=== PATIENT | female | born 1975 | race Asian ===

== ENCOUNTER 2018-09-25 07:52 | Outpatient (CLI) | payer OTHER ==
--- NOTE | 2018-09-25 13:51 | MRI Report ---
Reason: PAIN IN LEFT KNEE Procedure Date: 09/25/2018 Accession Number: [id number] / [id number] Procedure: MRI - Knee LT W/O CPT Code: FULL RESULT: EXAM: LEFT KNEE MRI WITHOUT CONTRAST EXAM DATE: 09/25/2018 09:09 AM. CLINICAL HISTORY: Left knee pain, arthritis. COMPARISON: None. TECHNIQUE: Multiplanar, multisequence T1-weighted and fluid-sensitive sequences of the knee without contrast. Other: None. FINDINGS: Cruciate ligaments: The anterior and posterior cruciate ligaments appear intact. Medial meniscus: Intact. No tear is identified. Lateral meniscus: Intact. No tear is identified. Collateral ligaments: The medial and fibular collateral ligaments appear intact. Bones and articular surfaces: Mild cartilage thinning, fissuring and irregularity in the weightbearing medial compartment most pronounced at the posterior weightbearing aspect of the medial femoral condyle. Lateral and patellofemoral compartments demonstrate no significant articular cartilage defects. Extensor mechanism: The patellar tendon and quadriceps insertion appear intact. IMPRESSION: 1. Mild degenerative cartilage changes in the medial compartment. [facility] MUSCULOSKELETAL RADIOLOGY SECTION
== END 2018-09-25 07:53 | disposition home or self-care (01) ==
LOC: DI 07:52
PROVIDERS: ATTEND Orthopaedic Surgery
DX: M17.11 Unilateral primary osteoarthritis, right knee (principal)

== ENCOUNTER 2021-09-18 08:00 | Outpatient (CLI) | payer OTHER | END 2021-09-18 23:59 | LOC: LAB.R 08:00 | PROVIDERS: ATTEND Internal Medicine | DX: Z02.1 Encounter for pre-employment examination (principal) | CPT/HCPCS: 86317 ==

== ENCOUNTER 2023-02-14 17:11 | Emergency (ER) | payer OTHER ==
--- OUTSIDE RECORDS SUMMARY | 2023-02-14 18:19 | EXTERNAL MEDICAL SUMMARY RPT | Continuity of Care Document ---
Author Name Unknown Address [address] [place] [address] Phone Organization [facility] Address [address] [place] [address] Phone Care Team Providers Care Supervisor Steffen House Name Role Phone Unavailable Unavailable Unavailable Matthew Hughes Unavailable Unavailable Allergies and Intolerances date description facility type (no date) No Known Drug Allergies [facility] ( unknown) Problems date description facility 2022-12-17 08:44 Unilateral primary osteoarthrit is, [facility] 2022-12-17 13:20 Unilateral primary osteoarthrit is, [facility] 2022-12-17 16:13 Unilateral primary osteoarthrit is, [facility] 2022-12-17 16:46 Unilateral primary osteoarthrit is, [facility] Procedures date description facility 2022-12-17 00:00 Unicompartment Knee Arthroplast y (Left) [facility] Results/Labs test date author facility value unit interpretation Result panel 1 (unknown) (no date) (unknown) (unknown) (no value) (units unknown) (unknown) (unknown) (no date) (unknown) (unknown) 12/17/22 (units unknown) (unknown) (unknown) (no date) (unknown) (unknown) [address] [place] [address] (un its unknown) (unknown) (unknown) (no date) (unknown) (unknown) Accession Numb er: [id number] (units unknown) (unknown) (unknown) (no date) (unknown) (unknown) Age/Sex: 47 / F Date of Service: (units unknown) (unknown) (unknown) (no date) (unknown) (unknown) [place] [id number] (units unknown) (unknown) (unknown) (no date) (unknown) (unknown) Approved by: Harrison Galeano M.D. on 12/17/2022 at 17:44 (units unknown) (unknown) (unknown) (no date) (unknown) (unknown) Bones: Patient is status post medial left knee hemiarthroplasty. Hardware (units unknown) (unknown) (unknown) (no date) (unknown) (unknown) COMPARISON: Is [facility], , XR KNEE LT 3V, 03/14/2022, 13:26. (units unknown) (unknown) (unknown) (no date) (unknown) (unknown) : 6 Acct:[id number] (units unknown) (unknown) (unknown) (no date) (unknown) (unknown) Dictated by: Harrison Galeano M.D. on 12/17/2022 at 17:44 (units unknown) (unknown) (unknown) (no date) (unknown) (unknown) FINDINGS: (units unknown) (unknown) (unknown) (no date) (unknown) (unknown) IMPRESSION: Expected immediate postoperative appearance, status post medial (units unknown) (unknown) (unknown) (no date) (unknown) (unknown) INDICATIONS: Postop (units unknown) (unknown) (unknown) (no date) (unknown) (unknown) [facility] (uni ts unknown) (unknown) (unknown) (no date) (unknown) (unknown) Loc: OR (units unknown) (unknown) (unknown) (no date) (unknown) (unknown) [id number] (units unknown) (unknown) (unknown) (no date) (unknown) (unknown) Ordering Provi angelina: Marlyn Bermudez P.A-C (units unknown) (unknown) (unknown) (no date) (unknown) (unknown) PROCEDURE: XR KNEE LT 1TO2V (units unknown) (unknown) (unknown) (no date) (unknown) (unknown) Patient: Chetna Howell MR#: (units unknown) (unknown) (unknown) (no date) (unknown) (unknown) Procedure: XR knee LT 1to2V (units unknown) (unknown) (unknown) (no date) (unknown) (unknown) Signed (units unknown) (unknown) (unknown) (no date) (unknown) (unknown) Soft tissues: Overlying postoperative changes are noted. (units unknown) (unknown) (unknown) (no date) (unknown) (unknown) TECHNIQUE: 2 view(s) of the knee acquired. (units unknown) (unknown) (unknown) (no date) (unknown) (unknown) XRay Report (units unknown) (unknown) (unknown) (no date) (unknown) (unknown) are in expecte d positions. Visualized bony structures are intact. (units unknown) (unknown) (unknown) (no date) (unknown) (unknown) components (units unknown) (unknown) (unknown) (no date) (unknown) (unknown) hemiarthroplasty. (u nits unknown) (unknown) (unknown) (no date) (unknown) (unknown) left knee (units unknown) (unknown) Result panel 2 (unknown) (no date) (unknown) (unknown) (no value) (units unknown) (unknown) (unknown) (no date) (unknown) (unknown) 12/17/22 1034 (units unknown) (unknown) (unknown) (no date) (unknown) (unknown) Age/Sex: 47 / F (uni ts unknown) (unknown) (unknown) (no date) (unknown) (unknown) Changes to H+P: No ( units unknown) (unknown) (unknown) (no date) (unknown) (unknown) : 6 Acct:[id number] (units unknown) (unknown) (unknown) (no date) (unknown) (unknown) Date of Servic e: 12/17/22 (units unknown) (unknown) (unknown) (no date) (unknown) (unknown) History + Phys ical reviewed/Exam performed by Physician: Yes (units unknown) (unknown) (unknown) (no date) (unknown) (unknown) Interval Note (units unknown) (unknown) (unknown) (no date) (unknown) (unknown) [address] [address] (units unknown) (unknown) (unknown) (no date) (unknown) (unknown) [id number] (units unknown) (unknown) (unknown) (no date) (unknown) (unknown) Patient: Chetna Howell MR#: (units unknown) (unknown) (unknown) (no date) (unknown) (unknown) Pre-operative Note ( units unknown) (unknown) (unknown) (no date) (unknown) (unknown) Provider: Ne Rojo MD (units unknown) (unknown) (unknown) (no date) (unknown) (unknown) Signed By:<Electronically signed by Ne Rojo MD> (units unknown) (unknown) Result panel 3 (unknown) (no date) (unknown) (unknown) (no value) (units unknown) (unknown) (unknown) (no date) (unknown) (unknown) 20 ml Exparel for post-operative pain control. The remainder of this mixture (units unknown) (unknown) (unknown) (no date) (unknown) (unknown) A PA was used in this surgical case for essential surgical retraction, (units unknown) (unknown) (unknown) (no date) (unknown) (unknown) Age/Sex: 47 / F (uni ts unknown) (unknown) (unknown) (no date) (unknown) (unknown) Anesthesia Typ e: General (units unknown) (unknown) (unknown) (no date) (unknown) (unknown) Driver'S Education Instructor: Car a A Walker (units unknown) (unknown) (unknown) (no date) (unknown) (unknown) Blood products transfused: none (units unknown) (unknown) (unknown) (no date) (unknown) (unknown) Closure Type: primary (units unknown) (unknown) (unknown) (no date) (unknown) (unknown) Complications: none (units unknown) (unknown) (unknown) (no date) (unknown) (unknown) Condition: stable (u nits unknown) (unknown) (unknown) (no date) (unknown) (unknown) : 6 Acct:[id number] (units unknown) (unknown) (unknown) (no date) (unknown) (unknown) Date of Servic e: 12/17/22 (units unknown) (unknown) (unknown) (no date) (unknown) (unknown) Date of proced ure: 12/17/22 (units unknown) (unknown) (unknown) (no date) (unknown) (unknown) Disposition: s sherin day surgery (units unknown) (unknown) (unknown) (no date) (unknown) (unknown) Estimated Bloo d Loss (mL): 200 (units unknown) (unknown) (unknown) (no date) (unknown) (unknown) Findings: (units unknown) (unknown) (unknown) (no date) (unknown) (unknown) Indications: (units unknown) (unknown) (unknown) (no date) (unknown) (unknown) [address] [address] (units unknown) (unknown) (unknown) (no date) (unknown) (unknown) Left knee medi al unicompartment replacement (units unknown) (unknown) (unknown) (no date) (unknown) (unknown) [id number] (units unknown) (unknown) (unknown) (no date) (unknown) (unknown) Next, a small amount of the anterior tibial boss was carefully resected with a (units unknown) (unknown) (unknown) (no date) (unknown) (unknown) Operative Date/Time/Diagnoses (units unknown) (unknown) (unknown) (no date) (unknown) (unknown) Operative Note (unit s unknown) (unknown) (unknown) (no date) (unknown) (unknown) Operative Notes (uni ts unknown) (unknown) (unknown) (no date) (unknown) (unknown) Patient: Chetna Howell MR#: (units unknown) (unknown) (unknown) (no date) (unknown) (unknown) Plan for aftercare: (units unknown) (unknown) (unknown) (no date) (unknown) (unknown) Post-op diagno sis: same (units unknown) (unknown) (unknown) (no date) (unknown) (unknown) Post-operative (unit s unknown) (unknown) (unknown) (no date) (unknown) (unknown) Pre-op diagnos is: left knee OA (units unknown) (unknown) (unknown) (no date) (unknown) (unknown) Procedure + Clinicians (units unknown) (unknown) (unknown) (no date) (unknown) (unknown) Procedure in detail: (units unknown) (unknown) (unknown) (no date) (unknown) (unknown) Procedure: (units unknown) (unknown) (unknown) (no date) (unknown) (unknown) Prosthetic dev ices, grafts, tissues, transplants, or devices: (units unknown) (unknown) (unknown) (no date) (unknown) (unknown) Provider: Ne Rojo MD (units unknown) (unknown) (unknown) (no date) (unknown) (unknown) Range of motio n was [0-130], with good stability throughout the range. (units unknown) (unknown) (unknown) (no date) (unknown) (unknown) Same procedure as scheduled: Yes (units unknown) (unknown) (unknown) (no date) (unknown) (unknown) Severe left kn ee medial unicompartment arthritis (units unknown) (unknown) (unknown) (no date) (unknown) (unknown) Signed By: (units unknown) (unknown) (unknown) (no date) (unknown) (unknown) Edgardo Rees medial unicompartment (units unknown) (unknown) (unknown) (no date) (unknown) (unknown) Specimen(s): n one sent (units unknown) (unknown) (unknown) (no date) (unknown) (unknown) Surgeon: Gayatri Rojo (units unknown) (unknown) (unknown) (no date) (unknown) (unknown) The femur was sized and it was noted to be a [C]. The appropriate cutting guide (units unknown) (unknown) (unknown) (no date) (unknown) (unknown) The knee was approached through an approximately 10 cm incision medial (units unknown) (unknown) (unknown) (no date) (unknown) (unknown) The patient dumont s had progressively worsening left knee pain with radiographic (units unknown) (unknown) (unknown) (no date) (unknown) (unknown) The patient wa s seen in the pre-operative area, where the left knee was (units unknown) (unknown) (unknown) (no date) (unknown) (unknown) The patient wi ll be maintained on a standard unicompartment knee replacement (units unknown) (unknown) (unknown) (no date) (unknown) (unknown) The trials wer e then remove. The cement was as applied and the final (units unknown) (unknown) (unknown) (no date) (unknown) (unknown) Time of proced ure: 11:20 (units unknown) (unknown) (unknown) (no date) (unknown) (unknown) Trial reductio n with the appropriate poly showed full range of motion and good (units unknown) (unknown) (unknown) (no date) (unknown) (unknown) a size [3]. It was noted that it fit without overhang. (units unknown) (unknown) (unknown) (no date) (unknown) (unknown) adjusted to ma ke sure there was appropriate slope that it was at the joint line (units unknown) (unknown) (unknown) (no date) (unknown) (unknown) and placed on the operative table in the supine position. After satisfactory (units unknown) (unknown) (unknown) (no date) (unknown) (unknown) and then was p inned to the tibia and the femur. The medial femoral condylar cut (units unknown) (unknown) (unknown) (no date) (unknown) (unknown) anesthesia, a time analysis clerk out was performed. The left leg was encircled with a (units unknown) (unknown) (unknown) (no date) (unknown) (unknown) arthrotomy. Th e osteophytes and medial meniscus were removed. (units unknown) (unknown) (unknown) (no date) (unknown) (unknown) as well as the potential need for eventual revision of the prosthetic. (units unknown) (unknown) (unknown) (no date) (unknown) (unknown) benefits and alternatives to surgery were discussed with the patient prior to (units unknown) (unknown) (unknown) (no date) (unknown) (unknown) brief medial compartment Betadine soak was performed. After confirming there was (units unknown) (unknown) (unknown) (no date) (unknown) (unknown) capsule was cl osed with interrupted vicryl. The subcutaneous tissue was closed (units unknown) (unknown) (unknown) (no date) (unknown) (unknown) changes consis tent with arthritis. Non-operative management has failed and the (units unknown) (unknown) (unknown) (no date) (unknown) (unknown) copiously irri gated and the tourniquet deflated. Hemostasis was obtained. The (units unknown) (unknown) (unknown) (no date) (unknown) (unknown) discharged shira e when safe for the home environment. (units unknown) (unknown) (unknown) (no date) (unknown) (unknown) drapes. The le g was elevated and exsanguinated with Eschmark bandage and the (units unknown) (unknown) (unknown) (no date) (unknown) (unknown) extension gap was carefully checked with an 8 mm gap cotton classer was noted that it (units unknown) (unknown) (unknown) (no date) (unknown) (unknown) fit well. A sm all number of additional osteophytes were resected. The tibia was (units unknown) (unknown) (unknown) (no date) (unknown) (unknown) glue. An Aquac el Ag dressing was applied and the patient was taken to recovery (units unknown) (unknown) (unknown) (no date) (unknown) (unknown) having tolerat ed the procedure well. (units unknown) (unknown) (unknown) (no date) (unknown) (unknown) holes were neto flaca. The tibia was pinned into place and drill holes were made. (units unknown) (unknown) (unknown) (no date) (unknown) (unknown) identified as the operative site and this was marked with my initials. The (units unknown) (unknown) (unknown) (no date) (unknown) (unknown) including incl uding resecting bone and establishing adequate hemostasis. (units unknown) (unknown) (unknown) (no date) (unknown) (unknown) loading. The b one was meticulously irrigated and dried. Additional Marcaine (units unknown) (unknown) (unknown) (no date) (unknown) (unknown) meticulously irrigated with normal saline. Small amount of additional meniscus (units unknown) (unknown) (unknown) (no date) (unknown) (unknown) no extruded ce ment posteriorly, the final tibial insert was placed. The knee was (units unknown) (unknown) (unknown) (no date) (unknown) (unknown) parapatella incision and carried into the knee through a medial parapatellar (units unknown) (unknown) (unknown) (no date) (unknown) (unknown) patient has requested left medial unicompartment knee replacement. The risks, (units unknown) (unknown) (unknown) (no date) (unknown) (unknown) patient receiv ed pre-operative antibiotics, and was taken to the operating room (units unknown) (unknown) (unknown) (no date) (unknown) (unknown) proceeding. Ri sks discussed included, but were not limited to, failure to (units unknown) (unknown) (unknown) (no date) (unknown) (unknown) prosthetics pl aced. Excess cement was removed during and after cement curing. A (units unknown) (unknown) (unknown) (no date) (unknown) (unknown) protocol with weight bearing as tolerated. The patient will receive aspirin and (units unknown) (unknown) (unknown) (no date) (unknown) (unknown) pulmonary embo lism, stroke, coma, heart attack, permanent paralysis and , (units unknown) (unknown) (unknown) (no date) (unknown) (unknown) relieve pain, stiffness, infection, nerve damage, deep venous thrombosis, (units unknown) (unknown) (unknown) (no date) (unknown) (unknown) saw. The guide was placed along the medial joint line. It was meticulously (units unknown) (unknown) (unknown) (no date) (unknown) (unknown) sequential compression devices for DVT prophylaxis. The patient will be (units unknown) (unknown) (unknown) (no date) (unknown) (unknown) stability at 0 , 45. and 90? with normal tracking of the components without edge (units unknown) (unknown) (unknown) (no date) (unknown) (unknown) stabilization of the patient's leg during critical portions of the procedure (units unknown) (unknown) (unknown) (no date) (unknown) (unknown) the tourniquet with ChloroPrep in the usual fashion and draped through sterile (units unknown) (unknown) (unknown) (no date) (unknown) (unknown) tourniquet abo ut the proximal thigh, and the leg was prepared from the toes to (units unknown) (unknown) (unknown) (no date) (unknown) (unknown) tourniquet inf lated to [250] mmHg pressure. (units unknown) (unknown) (unknown) (no date) (unknown) (unknown) was injected i nto the capsule and subcutaneous tissues during cement curing. (units unknown) (unknown) (unknown) (no date) (unknown) (unknown) was injected. The posterior capsule was injected with 0.25% Marcaine mixed with (units unknown) (unknown) (unknown) (no date) (unknown) (unknown) was made in extension. The tibial cut was made in flexion. The bone was (units unknown) (unknown) (unknown) (no date) (unknown) (unknown) was pinned int o place and carefully positioned on the femoral condyle. Drill (units unknown) (unknown) (unknown) (no date) (unknown) (unknown) was resected posterior capsule was checked and injected with Marcaine. The (units unknown) (unknown) (unknown) (no date) (unknown) (unknown) with barbed sutures. The skin with a running 3-0 V-Lock suture and surgical (units unknown) (unknown) Result panel 4 (unknown) (no date) (unknown) (unknown) (no value) (units unknown) (unknown) (unknown) (no date) (unknown) (unknown) 12/17/22 1425 (units unknown) (unknown) (unknown) (no date) (unknown) (unknown) 20 ml Exparel for post-operative pain control. The remainder of this mixture (units unknown) (unknown) (unknown) (no date) (unknown) (unknown) A PA was used in this surgical case for essential surgical retraction, (units unknown) (unknown) (unknown) (no date) (unknown) (unknown) Age/Sex: 47 / F (uni ts unknown) (unknown) (unknown) (no date) (unknown) (unknown) Anesthesia Typ e: General (units unknown) (unknown) (unknown) (no date) (unknown) (unknown) Driver'S Education Instructor: Car a A Walker (units unknown) (unknown) (unknown) (no date) (unknown) (unknown) Blood products transfused: none (units unknown) (unknown) (unknown) (no date) (unknown) (unknown) Closure Type: primary (units unknown) (unknown) (unknown) (no date) (unknown) (unknown) Complications: none (units unknown) (unknown) (unknown) (no date) (unknown) (unknown) Condition: stable (u nits unknown) (unknown) (unknown) (no date) (unknown) (unknown) : 6 Acct:[id number] (units unknown) (unknown) (unknown) (no date) (unknown) (unknown) Date of Servic e: 12/17/22 (units unknown) (unknown) (unknown) (no date) (unknown) (unknown) Date of proced ure: 12/17/22 (units unknown) (unknown) (unknown) (no date) (unknown) (unknown) Disposition: s sherin day surgery (units unknown) (unknown) (unknown) (no date) (unknown) (unknown) Estimated Bloo d Loss (mL): 150 (units unknown) (unknown) (unknown) (no date) (unknown) (unknown) Findings: (units unknown) (unknown) (unknown) (no date) (unknown) (unknown) Indications: (units unknown) (unknown) (unknown) (no date) (unknown) (unknown) [address] [address] (units unknown) (unknown) (unknown) (no date) (unknown) (unknown) Left knee medi al unicompartment replacement (units unknown) (unknown) (unknown) (no date) (unknown) (unknown) [id number] (units unknown) (unknown) (unknown) (no date) (unknown) (unknown) Next, a small amount of the anterior tibial boss was carefully resected with a (units unknown) (unknown) (unknown) (no date) (unknown) (unknown) Operative Date/Time/Diagnoses (units unknown) (unknown) (unknown) (no date) (unknown) (unknown) Operative Note (unit s unknown) (unknown) (unknown) (no date) (unknown) (unknown) Operative Notes (uni ts unknown) (unknown) (unknown) (no date) (unknown) (unknown) Patient was no filiberto to have substantial obesity an additional retraction was (units unknown) (unknown) (unknown) (no date) (unknown) (unknown) Patient: Chetna Howell MR#: (units unknown) (unknown) (unknown) (no date) (unknown) (unknown) Plan for aftercare: (units unknown) (unknown) (unknown) (no date) (unknown) (unknown) Post-op diagno sis: same (units unknown) (unknown) (unknown) (no date) (unknown) (unknown) Post-operative (unit s unknown) (unknown) (unknown) (no date) (unknown) (unknown) Pre-op diagnos is: left knee OA (units unknown) (unknown) (unknown) (no date) (unknown) (unknown) Procedure + Clinicians (units unknown) (unknown) (unknown) (no date) (unknown) (unknown) Procedure in detail: (units unknown) (unknown) (unknown) (no date) (unknown) (unknown) Procedure: (units unknown) (unknown) (unknown) (no date) (unknown) (unknown) Prosthetic dev ices, grafts, tissues, transplants, or devices: (units unknown) (unknown) (unknown) (no date) (unknown) (unknown) Provider: Ne Rojo MD (units unknown) (unknown) (unknown) (no date) (unknown) (unknown) Range of motio n was [0-130], with good stability throughout the range. (units unknown) (unknown) (unknown) (no date) (unknown) (unknown) Same procedure as scheduled: Yes (units unknown) (unknown) (unknown) (no date) (unknown) (unknown) Severe left kn ee medial unicompartment arthritis (units unknown) (unknown) (unknown) (no date) (unknown) (unknown) Signed By:<Electronically signed by Ne Rojo MD> (units unknown) (unknown) (unknown) (no date) (unknown) (unknown) Edgardo deleon Journey medial unicompartment size 4 femur, size 3 tibia, +8 (units unknown) (unknown) (unknown) (no date) (unknown) (unknown) Specimen(s): n one sent (units unknown) (unknown) (unknown) (no date) (unknown) (unknown) Surgeon: Gayatri Rojo (units unknown) (unknown) (unknown) (no date) (unknown) (unknown) The femur was sized and it was noted to be a [4]. The appropriate cutting guide (units unknown) (unknown) (unknown) (no date) (unknown) (unknown) The knee was approached through an approximately 12 cm incision medial (units unknown) (unknown) (unknown) (no date) (unknown) (unknown) The patient dumont s had progressively worsening left knee pain with radiographic (units unknown) (unknown) (unknown) (no date) (unknown) (unknown) The patient wa s seen in the pre-operative area, where the left knee was (units unknown) (unknown) (unknown) (no date) (unknown) (unknown) The patient wi ll be maintained on a standard unicompartment knee replacement (units unknown) (unknown) (unknown) (no date) (unknown) (unknown) The trials wer e then remove. The cement was as applied and the final (units unknown) (unknown) (unknown) (no date) (unknown) (unknown) Time of proced ure: 11:20 (units unknown) (unknown) (unknown) (no date) (unknown) (unknown) Tourniquet rosa e (min): 59 (units unknown) (unknown) (unknown) (no date) (unknown) (unknown) Trial reductio n with the appropriate poly showed full range of motion and good (units unknown) (unknown) (unknown) (no date) (unknown) (unknown) a size [3]. It was noted that it fit without overhang. (units unknown) (unknown) (unknown) (no date) (unknown) (unknown) adjusted to ma ke sure there was appropriate slope that it was at the joint line (units unknown) (unknown) (unknown) (no date) (unknown) (unknown) and placed on the operative table in the supine position. After satisfactory (units unknown) (unknown) (unknown) (no date) (unknown) (unknown) and then was p inned to the tibia and the femur. The medial femoral condylar cut (units unknown) (unknown) (unknown) (no date) (unknown) (unknown) anesthesia, a time analysis clerk out was performed. The left leg was encircled with a (units unknown) (unknown) (unknown) (no date) (unknown) (unknown) arthrotomy. Th e osteophytes and medial meniscus were removed. (units unknown) (unknown) (unknown) (no date) (unknown) (unknown) as well as the potential need for eventual revision of the prosthetic. (units unknown) (unknown) (unknown) (no date) (unknown) (unknown) benefits and alternatives to surgery were discussed with the patient prior to (units unknown) (unknown) (unknown) (no date) (unknown) (unknown) brief medial compartment Betadine soak was performed. After confirming there was (units unknown) (unknown) (unknown) (no date) (unknown) (unknown) capsule was cl osed with interrupted vicryl. The subcutaneous tissue was closed (units unknown) (unknown) (unknown) (no date) (unknown) (unknown) changes consis tent with arthritis. Non-operative management has failed and the (units unknown) (unknown) (unknown) (no date) (unknown) (unknown) copiously irri gated and the tourniquet deflated. Hemostasis was obtained. The (units unknown) (unknown) (unknown) (no date) (unknown) (unknown) discharged shira e when safe for the home environment. (units unknown) (unknown) (unknown) (no date) (unknown) (unknown) drapes. The le g was elevated and exsanguinated with Eschmark bandage and the (units unknown) (unknown) (unknown) (no date) (unknown) (unknown) extension gap was carefully checked with an 8 mm gap cotton classer was noted that it (units unknown) (unknown) (unknown) (no date) (unknown) (unknown) fit well. A sm all number of additional osteophytes were resected. The tibia was (units unknown) (unknown) (unknown) (no date) (unknown) (unknown) glue. An Aquac el Ag dressing was applied and the patient was taken to recovery (units unknown) (unknown) (unknown) (no date) (unknown) (unknown) having tolerat ed the procedure well. (units unknown) (unknown) (unknown) (no date) (unknown) (unknown) holes were neto flaca. The tibia was pinned into place and drill holes were made. (units unknown) (unknown) (unknown) (no date) (unknown) (unknown) identified as the operative site and this was marked with my initials. The (units unknown) (unknown) (unknown) (no date) (unknown) (unknown) including incl uding resecting bone and establishing adequate hemostasis. (units unknown) (unknown) (unknown) (no date) (unknown) (unknown) loading. The b one was meticulously irrigated and dried. Additional Marcaine (units unknown) (unknown) (unknown) (no date) (unknown) (unknown) meticulously irrigated with normal saline. Small amount of additional meniscus (units unknown) (unknown) (unknown) (no date) (unknown) (unknown) no extruded ce ment posteriorly, the final tibial insert was placed. The knee was (units unknown) (unknown) (unknown) (no date) (unknown) (unknown) parapatella incision and carried into the knee through a medial parapatellar (units unknown) (unknown) (unknown) (no date) (unknown) (unknown) patient has requested left medial unicompartment knee replacement. The risks, (units unknown) (unknown) (unknown) (no date) (unknown) (unknown) patient receiv ed pre-operative antibiotics, and was taken to the operating room (units unknown) (unknown) (unknown) (no date) (unknown) (unknown) poly (units unknown) (unknown) (unknown) (no date) (unknown) (unknown) proceeding. Ri sks discussed included, but were not limited to, failure to (units unknown) (unknown) (unknown) (no date) (unknown) (unknown) prosthetics pl aced. Excess cement was removed during and after cement curing. A (units unknown) (unknown) (unknown) (no date) (unknown) (unknown) protocol with weight bearing as tolerated. The patient will receive aspirin and (units unknown) (unknown) (unknown) (no date) (unknown) (unknown) pulmonary embo lism, stroke, coma, heart attack, permanent paralysis and , (units unknown) (unknown) (unknown) (no date) (unknown) (unknown) relieve pain, stiffness, infection, nerve damage, deep venous thrombosis, (units unknown) (unknown) (unknown) (no date) (unknown) (unknown) required. (units unknown) (unknown) (unknown) (no date) (unknown) (unknown) saw. The guide was placed along the medial joint line. It was meticulously (units unknown) (unknown) (unknown) (no date) (unknown) (unknown) sequential compression devices for DVT prophylaxis. The patient will be (units unknown) (unknown) (unknown) (no date) (unknown) (unknown) stability at 0 , 45. and 90? with normal tracking of the components without edge (units unknown) (unknown) (unknown) (no date) (unknown) (unknown) stabilization of the patient's leg during critical portions of the procedure (units unknown) (unknown) (unknown) (no date) (unknown) (unknown) the tourniquet with ChloroPrep in the usual fashion and draped through sterile (units unknown) (unknown) (unknown) (no date) (unknown) (unknown) tourniquet abo ut the proximal thigh, and the leg was prepared from the toes to (units unknown) (unknown) (unknown) (no date) (unknown) (unknown) tourniquet inf lated to 300 mmHg pressure. (units unknown) (unknown) (unknown) (no date) (unknown) (unknown) was injected i nto the capsule and subcutaneous tissues during cement curing. (units unknown) (unknown) (unknown) (no date) (unknown) (unknown) was injected. The posterior capsule was injected with 0.25% Marcaine mixed with (units unknown) (unknown) (unknown) (no date) (unknown) (unknown) was made in extension. The tibial cut was made in flexion. The bone was (units unknown) (unknown) (unknown) (no date) (unknown) (unknown) was pinned int o place and carefully positioned on the femoral condyle. Drill (units unknown) (unknown) (unknown) (no date) (unknown) (unknown) was resected posterior capsule was checked and injected with Marcaine. The (units unknown) (unknown) (unknown) (no date) (unknown) (unknown) with barbed sutures. The skin with a running 3-0 V-Lock suture and surgical (units unknown) (unknown) Social History date description facility 2022-12-17 00:00 Never smoked tobacco (finding) [facility] Vital Signs date measurement value units 2022-12-17 00:00 BMI 38.3 kg/m2 2022-12-17 00:00 BP_diastolic 71 mmHg 2022-12-17 00:00 BP_systolic 109 mmHg 2022-12-17 00:00 heart_rate 72 /min 2022-12-17 00:00 height_metric 149.86 cm 2022-12-17 00:00 height_standard 59 in 2022-12-17 00:00 o2_saturation 95 % 2022-12-17 00:00 respiration_rate 16 /min 2022-12-17 00:00 temperature_metric 36.56 C 2022-12-17 00:00 temperature_standard 97.8 F 2022-12-17 00:00 weight_metric 86.18 kg 2022-12-17 00:00 weight_standard 189.99 lb
--- NOTE | 2023-02-14 19:35 | ED Physician Documentation ---
History of Present Illness - Stated complaint Stated Complaint: RT BREAST LUMP - Chief complaint Chief Complaint: General - History obtained from History obtained from: Patient - History of Present Illness Timing: How many weeks ago (2) Pain level max: 0 Pain level now: 0 - Additonal information Additional information: Patient is a 47-year-old female presents to the emergency department with an enlarging mass to the right breast. Ongoing for the past 2 weeks. Try to get in with her PCP but was unable to be seen. Nothing makes it better or worse. She has had cyst removed in the past. She states that the mass appears to be enlarging rapidly over the past few days. 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 - Present Medications Home Medications: Ambulatory Orders Medication Instructions Recorded Confirmed Fluticasone [Flonase] 1 spray WILMAN DAILY 04/13/16 02/14/23 Ibuprofen [Motrin] 800 mg PO Q8H PRN 04/13/16 02/14/23 - Allergies Allergies/Adverse Reactions: Allergies Allergy/AdvReac Type Severity Reaction Status Date / Time codeine Allergy Nausea Verified 02/14/23 17:23 - Social History Does the pt smoke?: No Smoking Status: Never smoker Does the pt drink ETOH?: No Does the pt have substance abuse?: No - Immunizations Immunizations are current?: Yes PD ED PE NORMAL - Vitals Vital signs reviewed: Yes - General General: Alert and oriented X 3, No acute distress - HEENT HEENT: Moist mucous membranes - Derm Derm: Warm and dry - Neuro Neuro: Alert and oriented X 3 - Psych Psych: Normal mood, Normal affect - Free text exam Free text exam: Left breast is normal. There is a palpable mass on the right breast. No nipple changes. No discharge. No tenderness. No dimpling of the skin. No redness or swelling. Results - Vitals Vitals: Vital Signs - 24 hr 02/14/23 02/14/23 17:17 21:12 Temperature 36.3 C L Heart Rate 77 71 Respiratory 16 16 Rate Blood Pressure 136/86 H 130/72 O2 Saturation 100 99 Oxygen O2 Source Room air - Labs Labs: Laboratory Tests 02/14/23 02/14/23 19:44 19:44 WBC 7.3 RBC 4.46 Hgb 12.1 Hct 37.8 MCV 84.8 MCH 27.1 MCHC 32.0 RDW 13.2 Plt Count 346 MPV 9.5 Neut # (Auto) 4.5 Lymph # (Auto) 2.1 Randall # (Auto) 0.5 Eos # (Auto) 0.2 Baso # (Auto) 0.1 Absolute Nucleated RBC 0.00 Nucleated RBC % 0.0 Sodium 139 Potassium 3.6 Chloride 103 Carbon Dioxide 25 Anion Gap 11.0 BUN 11 Creatinine 0.5 Estimated GFR (MDRD) 132 Glucose 102 H Calcium 9.1 - Rads (name of study) Right breast limited ultrasound Relevant Findings:: Final report received, See rad report PD Medical Decision Making - ED course Complexity details: reviewed results, considered differential, d/w patient ED course: Limited ultrasound of the right breast was performed as on my bedside ultrasound there appeared to be a simple cystic structure, discussed the case with on-call general surgery who recommended a formal ultrasound. Formal ultrasound shows a right upper outer quadrant cyst, 6 x 5 x 4 cm. No adjacent hyperemia or suspicious internal vascularity or solid components. Appears more likely to be a simple cyst. No inflammatory changes suggest abscess. Clinically does not appear consistent with an abscess either. We will have her follow-up with general surgery to discuss cyst drainage. Patient does get routine mammograms. She has had multiple cysts drained in the past. Patient counseled regarding signs and symptoms for which I believe and urgent re-evaluation would be necess brigid. Patient with good understanding of and agreement to plan and is comfortable going home at this time This document was made in part using voice recognition software. While efforts are made to proofread this document, sound alike and grammatical errors may occur. Departure - Departure Disposition: 01 Home, Self Care Clinical Impression: Breast cyst Qualifiers: Laterality: right Qualified Code(s): N60.01 - Solitary cyst of right breast Condition: Good Instructions: Breast Cyst Follow-Up: Surgical Care [Provider Group] Comments: You appear to have a breast cyst tonight. Your doctor can refer you to general surgery to have the cyst removed. Please follow-up with your doctor for further care. Return if you worsen. Discharge Date/Time: 02/14/23 21:12
[2023-02-14 19:51] LABS: BASOPHILS # (AUTO) 0.1 10^3/uL (0.0-0.1); BASOPHILS % (AUTO) 0.8 %; EOSINOPHILS # (AUTO) 0.2 10^3/uL (0.0-0.7); HCT - HEMATOCRIT 37.8 % (37.0-47.0); HGB - HEMOGLOBIN 12.1 g/dL (12.0-16.0); LYMPHOCYTES # (AUTO) 2.1 10^3/uL (1.5-3.5); MEAN CORPUSCULAR HEMOGLOBIN 27.1 pg (27.0-31.0); MEAN CORPUSCULAR VOLUME 84.8 fL (81.0-99.0); MEAN PLATELET VOLUME 9.5 fL (7.9-10.8); MONOCYTES # (AUTO) 0.5 10^3/uL (0.0-1.0); MONOCYTES % (AUTO) 6.1 %; NEUTROPHILS # (AUTO) 4.5 10^3/uL (1.5-6.6); PLT - PLATELET COUNT 346 10^3/uL (130-450); RED BLOOD COUNT 4.46 10^6/uL (4.20-5.40); RED CELL DISTRIBUTION WIDTH 13.2 % (12.0-15.0); WHITE BLOOD COUNT 7.3 x10^3/uL (4.8-10.8)
[2023-02-14 20:03] LABS: CALCIUM 9.1 mg/dL (8.5-10.3); CREATININE 0.5 mg/dL (0.4-1.0); POTASSIUM 3.6 mmol/L (3.5-5.0)
[2023-02-14 21:15] VITALS: BP 130/72
--- NOTE | 2023-02-14 21:30 | Ultrasound Report ---
PROCEDURE: Breast RT Limited INDICATIONS: cystic structure TECHNIQUE: Multiple grayscale and color Doppler images of the right breast were acquired over the pal pable area of concern. COMPARISON: None. FINDINGS: In the right breast upper, outer quadrant, there is a well-defined, lobular, wider than tall oval cys t with lobular margins measuring 6.2 x 4.9 x 3.9 cm in size. A few internal echoes compatible with de bris. No internal solid components. No internal vascularity. There is increased through transmission. No adjacent vascularity or hyperemia identified. Overlying skin appears normal. IMPRESSION: Right upper outer quadrant cyst measuring 6.2 x 4.9 x 3.9 cm in size. No adjacent hyperemia or suspic ious internal vascularity/solid components. This is compatible with a simple cyst. There are no infla mmatory changes to suggest presence of an abscess. However, recommend clinical correlation. If this cyst is painful, outpatient cyst aspiration can be performed under sonographic guidance. Femi tionally, recommend routine screening mammogram. Overall imaging assessment: BI-RADS 2 (benign). Reviewed by: Luis Manuel Chaidez MD on 02/14/2023 9:28 PM PDT Approved by: Luis Manuel Chaidez MD on 02/14/2023 9:28 PM PDT Station ID: [id number]
== END 2023-02-14 21:12 | disposition home or self-care (01) ==
LOC: ED 17:11
DX: N60.01 Solitary cyst of right breast (principal)
CPT/HCPCS: 36415; 80048; 85025; 99283; 99284

== ENCOUNTER 2023-07-22 17:11 | Emergency (ER) | payer OTHER ==
[2023-07-22 17:32] VITALS: BP 134/84; O2SAT 99
[2023-07-22] MEDS ORDERED: BENZONATATE 100 MG CAPSULE PO STA (18:20)
[2023-07-22] MEDS ORDERED: DOXYCYCLINE 100 MG TABLET PO STA (18:20)
--- NOTE | 2023-07-22 18:21 | ED Physician Documentation ---
PD HPI DYSPNEA - Stated complaint Stated Complaint: WHEEZING/SOA - Chief complaint Chief Complaint: Resp - History obtained from History obtained from: Patient - Additional information Additional information: 47-year-old woman has been sick for 2 weeks with cough, some hemoptysis, chills. No chest pain. Minimal trouble breathing. Her daughter was sick with a viral URI recently. 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 - Present Medications Home Medications: Ambulatory Orders Medication Instructions Recorded Confirmed Fluticasone [Flonase] 1 spray WILMAN DAILY 04/13/16 07/22/23 Ibuprofen [Motrin] 800 mg PO Q8H PRN 04/13/16 07/22/23 Benzonatate [Tessalon] 200 mg PO TID PRN #20 cap 07/22/23 Doxycycline [Vibramycin] 100 mg PO BID #14 tablet 07/22/23 - Allergies Allergies/Adverse Reactions: Allergies Allergy/AdvReac Type Severity Reaction Status Date / Time No Known Drug Allergies Allergy Verified 07/22/23 17:28 - Social History Does the pt smoke?: No Smoking Status: Never smoker Does the pt drink ETOH?: No Does the pt have substance abuse?: No - Immunizations Immunizations are current?: Yes PD ED PE NORMAL - Vitals Vital signs reviewed: Yes - General General: Alert and oriented X 3 - HEENT HEENT: Pharynx benign - Cardiac Cardiac: RRR, No murmur - Respiratory Respiratory: No respiratory distress, Other (Occasional bronchitic coughing, but clear lungs) - Neuro Neuro: Alert and oriented X 3, Normal speech Results - Vitals Vitals: Vital Signs - 24 hr 07/22/23 17:24 Temperature 36.1 C L Heart Rate 77 Respiratory 16 Rate Blood Pressure 134/84 H O2 Saturation 99 Oxygen O2 Source Room air PD Medical Decision Making - ED course ED course: 47-year-old woman with bronchitis. Has been sick long enough to merit a trial of antibiotics. She already has albuterol and Flonase at home which are appropriate to continue. Departure - Departure Disposition: Home, Self Care Clinical Impression: Bronchitis Condition: Good Record reviewed to determine appropriate education?: Yes Instructions: ED Upper Resp Infec Abx Tx Prescriptions: Benzonatate [Tessalon] 200 mg PO TID PRN #20 cap PRN Reason: Cough Doxycycline [Vibramycin] 100 mg PO BID #14 tablet Comments: Follow-up with your primary care physician after the holiday weekend if not better, return for new or worsening symptoms.
== END 2023-07-22 18:41 | disposition home or self-care (01) ==
LOC: ED 17:11
DX: J40 Bronchitis, not specified as acute or chronic (principal)
CPT/HCPCS: 99282; 99283; A9270